=== PATIENT | male | born 1975 | race Caucasian/White ===

== ENCOUNTER 2025-04-11 12:30 | Emergency (ER) | payer BC, SELFPAY ==
[2025-04-11 12:55] VITALS: BP 137/97; PULSE 78; RESP 16; TEMP 36.4; O2SAT 98; BMI 26.4
--- NOTE | 2025-04-11 13:02 | XR_ITS ---
FINAL REPORT CLINICAL HISTORY: cut from mirror 4th digit FINDINGS: LEFT HAND Three views were obtained. There is no fracture or dislocation. The joint spaces appear normal. Skin dressing and soft tissue swelling is identified. There is no foreign body. IMPRESSION: Soft tissue swelling without acute bony abnormality. Reviewed, Interpreted and Dictated by Rafal Martines MD Transcribed by Lisa Maciel Authenticated and [facility]
--- NOTE | 2025-04-11 13:06 | ED_ITS ---
<Statement entered by Hitesh Womack MD - 04/11/25 16:05> DEMETRIUS Attestation I was consulted by the DEMETRIUS, and we discussed the complexity of problems being addressed. I approved the treatment and management plan for this patient's care in the emergency department, thus performing a substantial portion of the medical decision making. Hitesh Womack MD Discharge Plan Disposition Patient Disposition: Home, Self-Care Condition: Good Chief Complaint: Wound/Laceration Prescriptions Prescriptions: No Action No Known Home Medications Referrals Follow up/Referrals: Provider,Referral, [Primary Care Provider] - See instructions Activity Restrictions/Add. Instructions Additional Instructions/Restrictions: Leave dressing in place for 12 hours remove outer dressing leave Surgicel in place. Follow-up with PCP Monitor for signs and symptoms of infection If symptoms worsen or do not improve return Clinical Impressions Clinical Impression: Avulsion of skin Instructions Patient Instructions: DI for Laceration Repair Print Language Print Language: Persian Discharge ED Provider: Hitesh Womack General Adult HPI General Chief complaint: Wound/Laceration Stated complaint: WC-04/11/25 1200-Laceration to L Ring finger Time Seen by Provider: 04/11/25 12:59 Mode of Arrival: Ambulatory Description of Symptoms (Recalled from ER Triage Doc. by RN): Pt reports cut to L ring finger from mirror. 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 History of Present Illness HPI narrative: 49-year-old male presents for a cut to the left ring finger from a near. Patient states he was unable to get the bleeding to stop. Patient states last tetanus was last year. Related Data Home Medications ?Medication ?Instructions ?Recorded ?Confirmed No Known Home Medications 04/11/25 04/11/25 Allergies Allergy/AdvReac Type Severity Reaction Status Date / Time No Known Allergies Allergy Verified 04/11/25 13:06 [facility] Disclaimer: The information contained in this section may have been updated after the patient was seen, as this information can be updated by other users. 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 avulsion Neurological Exam Neurological exam: Present alert and oriented X3 Skin Skin exam: Present warm Medical Decision Making Medical Records Medical records reviewed: Yes I reviewed the patient's medical records. Screening: Per USPSTF and CDC recommendations, given the prevalence of disease in our region, it is our hospital?s policy to screen for HIV and viral Hepatitis for all patients aged 18 and over and those with ongoing risk factors. [place] Inquiry Pt receiving controlled substance: No Vital Signs: 04/11/25 12:55 Temperature 97.5 F L Temperature Source Oral Pulse Rate [Left Radial] 78 Respiratory Rate 16 Blood Pressure [Left Arm] 137/97 H Blood Pressure Mean [Left Arm] 110 Blood Pressure Source [Left Arm] Automatic Cuff Blood Pressure Position [Left Arm] Sitting 02 Sat by Pulse Oximetry 98 Oxygen Delivery Method Room Air Orders (Tests/Meds): ORDERS Category Date Time Status Hand XR left minimum 3 views [XR hand LT min 3V] Stat Exams 04/11/25 13:02 Taken Radiology Data #1: Image(s): Finger(s)/Thumb Image Reviewed: Yes I reviewed the patient's radiology image Medical Decision Narrative: In summary patient is a 49-year-old male who presents to the emergency department for evaluation of laceration to the left ring finger. Patient is hemodynamically stable upon arrival, afebrile. Avulsion injury to the left ring finger. Differential diagnosis includes laceration. Initial workup will be conducted with x-ray shows no foreign body. Initial inventions include wound cleaned, surgery gel(absorbent hemostat), Telfa and Coban. Initial workup reviewed by mn x-ray negative for foreign body. Upon repeat evaluation no bleeding through bandage. Given this patient appropriate for discharge at this time will discharge home with wound care instructions. Critical Care Critical Care Time Critical Care Time: No
--- NOTE | 2025-04-11 13:23 | PC.NURSE ---
Dr Womack at bedside at this time
[2025-04-11 14:45] VITALS: BP 130/62; PULSE 64; RESP 20; TEMP 37.2; O2SAT 99
== END 2025-04-11 14:46 | disposition home or self-care (01) ==
PROVIDERS: Emergency Provider Student in an Organized Health Care Education/Training Program
DX: S61.205A Unspecified open wound of left ring finger without damage to nail, initial encounter (principal); W25.XXXA Contact with sharp glass, initial encounter
CPT/HCPCS: 73130; 99283